=== PATIENT | male | born 1985 | race Caucasian/White ===

== ENCOUNTER 2019-04-18 07:09 | Day surgery (SDC) | payer BC ==
[2019-04-18] MEDS ORDERED: BUPIVACAINE 0.5% (SDV) 30 ML INJ (09:43)
[2019-04-18] MEDS ORDERED: SEVOFLURANE 15 MIN (09:43)
[2019-04-18] MEDS ORDERED: MIDAZOLAM 1 MG/ML 2 ML INJ (09:49)
[2019-04-18] MEDS ORDERED: PROPOFOL 20 ML (09:55)
[2019-04-18] MEDS ORDERED: ROCURONIUM 50 MG INJ (09:55)
[2019-04-18] MEDS ORDERED: DEXAMETHASONE 4 MG/ML 5 ML INJ (09:56)
[2019-04-18] MEDS ORDERED: CEFAZOLIN 1 GM INJ (09:56)
[2019-04-18] MEDS ORDERED: ONDANSETRON 4 MG INJ (09:56)
[2019-04-18] MEDS ORDERED: LIDOCAINE 2% (SDV) 5 ML INJ (09:56)
[2019-04-18] MEDS: POLYMYXIN/BACITRACIN 1L IRRIG (12:01)
[2019-04-18] MEDS: NEOMYC/POLYMYX/BACIT 30 GM OINT (12:01)
[2019-04-18] MEDS ORDERED: KETOROLAC 30 MG INJ (12:14)
[2019-04-18] MEDS ORDERED: LABETALOL HCL 20MG INJ (12:16)
[2019-04-18] MEDS ORDERED: morphine 2 MG INJ IV (13:30)
[2019-04-18] MEDS: KETOROLAC 30 MG INJ IV (13:30)
[2019-04-18] MEDS ORDERED: NEOSTIGMINE 3 MG/3 ML SYRINGE (13:55)
[2019-04-18] MEDS ORDERED: GLYCOPYRROLATE 0.4 MG INJ (13:56)
[2019-04-18] MEDS: METOCLOPRAMIDE 10 MG INJ IV (14:15)
[2019-04-18] MEDS ORDERED: FENTAnyl 50 MCG/ML VIAL IV ×3 (14:30)
[2019-04-18] MEDS ORDERED: KETOROLAC 30 MG INJ IV (14:30)
[2019-04-18] MEDS ORDERED: DIPHENHYDRAMINE 50 MG INJ IV (14:30)
[2019-04-18] MEDS ORDERED: ALBUTEROL 0.083% (NEB) 2.5 MG/3 ML AMP HHN (14:30)
[2019-04-18] MEDS ORDERED: MEPERIDINE 25 MG INJ IV (14:30)
[2019-04-18] MEDS ORDERED: EPHEDrine 25 MG/5 ML SYG IV (14:30)
[2019-04-18] MEDS ORDERED: LABETALOL HCL 20MG INJ IV (14:30)
[2019-04-18] MEDS ORDERED: MIDAZOLAM 1 MG/ML 2 ML INJ IV (14:30)
[2019-04-18] MEDS ORDERED: HYDROmorphONE 1 MG/5 ML IV SYRINGE IV ×3 (14:30)
[2019-04-18] MEDS ORDERED: OXYCODONE/ACETAMINOPHEN (5/325) TAB PO ×2 (14:30)
[2019-04-18] MEDS ORDERED: ONDANSETRON 4 MG INJ IV (14:30)
[2019-04-18] MEDS ORDERED: hydrALAzine 20 MG INJ IV (14:30)
[2019-04-18] MEDS: GABAPENTIN 300 MG CAP PO (14:33)
== END 2019-04-18 16:15 | disposition home or self-care (01) ==
LOC: SDS 07:09
DX: S82.872D Displaced pilon fracture of left tibia, subsequent encounter for closed fracture with routine healing (principal); S82.832D Other fracture of upper and lower end of left fibula, subsequent encounter for closed fracture with routine healing; X58.XXXD Exposure to other specified factors, subsequent encounter
CPT/HCPCS: 27758; 73610; 82306